=== PATIENT | male | born 1975 | race Caucasian/White ===

== ENCOUNTER 2022-11-30 13:52 | Emergency (ER) | payer BC ==
[2022-11-30] MEDS ORDERED: Ondansetron 4 MG/2 ML SDV IVPUSH ONE (15:17)
[2022-11-30] MEDS ORDERED: Lactated Ringers 1,000 ML IV SCH (15:30)
[2022-11-30] MEDS ORDERED: Sodium Chloride 0.9% 10 ML Syringe FLUSH ONE (16:04)
[2022-11-30] MEDS ORDERED: Iopamidol 612 MG/ML 100 ML Bottle IVPUSH ONE (16:04)
[2022-11-30] MEDS ORDERED: Iopamidol 612 MG/ML 50 ML SDV IVPUSH ONE (16:04)
[2022-11-30 16:05] LABS: ESTIMATED GFR 107 mL/min (>60)
[2022-11-30] MEDS ORDERED: Diatrizoate Meglumine/Diatrizoate Sodium 37% 120 ML Bottle PO ONE (16:05)
== END 2022-11-30 18:16 | disposition home or self-care (01) ==
LOC: JD.ED 13:52
DX: R10.9 Unspecified abdominal pain (principal); R11.2 Nausea with vomiting, unspecified
CPT/HCPCS: 36415; 74177; 80053; 81003; 83690; 85025; 96361; 96374; 99284; J2405; J3490; J7120; Q9963; Q9967

== ENCOUNTER 2024-02-20 14:27 | Emergency (ER) | payer BC, OTHER ==
[2024-02-20] MEDS: Adenosine 6 MG/2 ML SDV IVPUSH ONE ×2 (14:38→14:40)
[2024-02-20 14:52] LABS: BASOPHILS ABSOLUTE AUTO 0.1 K/mm3 (0.0-0.2); BASOPHILS PERCENT AUTO 0.5 % (0.0-1.0); EOSINOPHILS ABSOLUTE AUTO 0.2 K/mm3 (0.0-0.4); EOSINOPHILS PERCENT AUTO 1.5 % (0.0-6.0); HEMATOCRIT 47.1 % (42.0-52.0); HEMOGLOBIN 16.7 gm/dl (14.0-18.0); IMMATURE GRAN ABSOLUTE AUTO 0.04 K/mm3 (0.00-0.05); IMMATURE GRAN PERCENT AUTO 0.3 % (0.0-0.4); LYMPHOCYTES ABSOLUTE AUTO 4.3 K/mm3 (1.0-4.8); MEAN CORPUSCULAR HEMOGLOBIN 30.8 pg (28.0-32.0); MEAN CORPUSCULAR HGB CONC 35.5 g/dl (32.0-36.0); MEAN CORPUSCULAR VOLUME 86.7 fl (83.0-99.0); MEAN PLATELET VOLUME 9.2 fl (9.4-12.4); MONOCYTES ABSOLUTE AUTO 1.3 K/mm3 (0.0-0.8); MONOCYTES PERCENT AUTO 10.3 % (0.0-8.0); NEUTROPHILS PERCENT AUTO 54.4 % (41.0-71.0); PLATELET COUNT,PLT 229 K/mm3 (150-400); RED BLOOD CELL COUNT 5.43 M/mm3 (4.52-5.90); WHITE BLOOD CELL COUNT,WBC 12.93 K/mm3 (3.9-11.3)
[2024-02-20] MEDS: Sodium Chloride 0.9% 10 ML Syringe FLUSH PRN (14:53)
[2024-02-20] MEDS: Sodium Chloride 0.9% 1,000 ML IV SCH (14:53)
[2024-02-20 15:29] LABS: A/G RATIO 1.1 (1-2); ANION GAP 16.7 (5-15); BILIRUBIN TOTAL 1.1 mg/dL (0.2-1.0); BUN/CREATININE RATIO 18.3 (14-18); CALCIUM 9.3 mg/dL (8.5-10.1); CREATININE 1.2 mg/dL (0.7-1.3); EST CRCL DRUG DOSING (CG) 109.45 mL/min; MAGNESIUM 2.2 mg/dL (1.8-2.4); POTASSIUM,K 3.7 mEq/L (3.5-5.1); PROTEIN TOTAL,TP 7.6 g/dl (6.4-8.2)
[2024-02-20] MEDS: Adenosine 12 MG/4 ML SDV ONE (16:22)
[2024-02-20] MEDS: Adenosine 6 MG/2 ML SDV ONE (16:22)
== END 2024-02-20 16:42 | disposition home or self-care (01) ==
LOC: JD.ED 14:27
DX: I47.10 Supraventricular tachycardia, unspecified (principal); F17.210 Nicotine dependence, cigarettes, uncomplicated; Z91.018 Allergy to other foods; Z88.6 Allergy status to analgesic agent
CPT/HCPCS: 36415; 71045; 80053; 83735; 84484; 85025; 93005; 96374; 99285; J0153; J3490; J7030; 93010; 99284

== ENCOUNTER 2025-01-05 13:29 | Inpatient (IN) | payer BC ==
[2025-01-05] MEDS: Sodium Chloride 0.9% 1,000 ML IV ONE (14:03)
[2025-01-05] MEDS: Ondansetron 4 MG/2 ML SDV IVPUSH ONE (14:03)
[2025-01-05] MEDS: Diltiazem 25 MG/5 ML SDV IVPUSH ONE (14:05)
[2025-01-05 14:06] LABS: INR 0.99; PROTHROMBIN TIME 10.5 SECONDS (9.7-12.0)
[2025-01-05] MEDS: Diltiazem 125 MG in Sodium Chloride 0.9% 100 ML IV SCH (14:06)
[2025-01-05 14:07] LABS: BASOPHILS ABSOLUTE AUTO 0.1 K/mm3 (0.0-0.2); BASOPHILS PERCENT AUTO 0.4 % (0.0-1.0); EOSINOPHILS ABSOLUTE AUTO 0.2 K/mm3 (0.0-0.4); EOSINOPHILS PERCENT AUTO 1.5 % (0.0-6.0); HEMOGLOBIN 17.9 gm/dl (14.0-18.0); IMMATURE GRAN ABSOLUTE AUTO 0.04 K/mm3 (0.00-0.05); IMMATURE GRAN PERCENT AUTO 0.3 % (0.0-0.4); LYMPHOCYTES ABSOLUTE AUTO 3.8 K/mm3 (1.0-4.8); LYMPHOCYTES PERCENT AUTO 27.4 % (24.0-44.0); MEAN CORPUSCULAR HEMOGLOBIN 30.6 pg (28.0-32.0); MEAN CORPUSCULAR HGB CONC 34.4 g/dl (32.0-36.0); MEAN CORPUSCULAR VOLUME 88.9 fl (83.0-99.0); MEAN PLATELET VOLUME 9.6 fl (9.4-12.4); MONOCYTES PERCENT AUTO 7.5 % (0.0-8.0); NEUTROPHILS ABSOLUTE AUTO 8.7 K/mm3 (1.8-7.7); NEUTROPHILS PERCENT AUTO 62.9 % (41.0-71.0); PLATELET COUNT,PLT 220 K/mm3 (150-400); RED BLOOD CELL COUNT 5.85 M/mm3 (4.52-5.90); WHITE BLOOD CELL COUNT,WBC 13.82 K/mm3 (3.9-11.3)
[2025-01-05] MEDS ORDERED: Sodium Chloride 0.9% 100 ML IV SCH (14:15)
[2025-01-05 14:16] LABS: ALBUMIN 3.7 g/dl (3.4-5.0); ANION GAP 17.5 (5-15); BILIRUBIN TOTAL 0.8 mg/dL (0.2-1.0); CREATININE 1.4 mg/dL (0.7-1.3); EST CRCL DRUG DOSING (CG) 92.82 mL/min; PROTEIN TOTAL,TP 7.3 g/dl (6.4-8.2); TSH 1.413 uIU/mL (0.358-3.74)
[2025-01-05 14:17] LABS: POTASSIUM,K 4.5 mEq/L (3.5-5.1)
[2025-01-05] MEDS: Iopamidol 755 Mg/ML 100 ML Bottle IVPUSH ONE (14:40)
[2025-01-05] MEDS ORDERED: Acetaminophen 325 MG Tab PO PRN (17:12)
[2025-01-05] MEDS: Sodium Chloride 0.9% 1,000 ML IV SCH (18:24)
[2025-01-05 18:49] LABS: BARBITURATE SCREEN,URINE NEGATIVE (CUTOFF=200); BENZODIAZEPINES SCREEN,URINE NEGATIVE (CUTOFF=150); BUPRENORPHINE SCREEN,URINE NEGATIVE (CUTOFF=10); METHADONE SCREEN, URINE NEGATIVE (CUT0FF=200); METHAMPHETAMINES SCREEN, URINE NEGATIVE (CUTOFF=500); OXYCODONE SCREEN,URINE NEGATIVE (CUT0FF=100); THC SCREEN,URINE 20 NG/ML NEGATIVE (CUTOFF=50)
[2025-01-05 18:57] LABS: AMPHETAMINES SCREEN, URINE NEGATIVE (CUTOFF=500)
[2025-01-05] MEDS ORDERED: Sodium Chloride 0.9% 1,000 ML IV SCH (19:00)
[2025-01-06] MEDS: Enoxaparin 40 MG/0.4 ML Syringe SUBCUT SCH (08:59)
[2025-01-06] MEDS: Metoprolol Succinate 25 MG Tab.ER PO SCH (09:00)
[2025-01-06 10:24] LABS: HEMATOCRIT 48.3 % (42.0-52.0); MEAN CORPUSCULAR HGB CONC 33.1 g/dl (32.0-36.0); MEAN CORPUSCULAR VOLUME 90.6 fl (83.0-99.0); MEAN PLATELET VOLUME 9.3 fl (9.4-12.4); PLATELET COUNT,PLT 160 K/mm3 (150-400); RED BLOOD CELL COUNT 5.33 M/mm3 (4.52-5.90); WHITE BLOOD CELL COUNT,WBC 8.54 K/mm3 (3.9-11.3)
[2025-01-06 10:51] LABS: ANION GAP 11.3 (5-15); BUN/CREATININE RATIO 12.7 (14-18); CALCIUM 8.6 mg/dL (8.5-10.1); CREATININE 1.1 mg/dL (0.7-1.3); EST CRCL DRUG DOSING (CG) 118.13 mL/min; POTASSIUM,K 4.3 mEq/L (3.5-5.1)
[2025-01-06] MEDS: Metoprolol Succinate 25 MG Tab.ER PO ONE (11:07)
[2025-01-06] MEDS: Metoprolol Tartrate 25 MG Tab PO SCH (17:59)
[2025-01-06] MEDS ORDERED: Metoprolol Succinate 50 MG Tab.ER PO SCH (21:00)
== END 2025-01-07 09:56 | disposition home or self-care (01) | DRG 201 ==
LOC: JD.ED 13:29 → JD.ICU 16:58 → JD.MS 01-07 09:50
PROVIDERS: ADMIT Family Medicine; ATTEND Family Medicine
DX: I48.91 Unspecified atrial fibrillation (principal); N17.9 Acute kidney failure, unspecified; E86.0 Dehydration; H54.7 Unspecified visual loss; Z88.8 Allergy status to other drugs, medicaments and biological substances; Z98.890 Other specified postprocedural states; Z72.0 Tobacco use
CPT/HCPCS: 36415; 71045; 71045-26; 71275; 71275-26; 80048; 80053; 80306; 82550; 83690; 83735; 83880; 84443; 84484; 85025; 85027; 85610; 87428-QW; 93005; 93010; 93306; 96361; 96374; 96375; 99285; 99285-25; A9270-GY; J1650; J2405; J3490; J7030; Q9967